=== PATIENT | male | born 1970 | race Caucasian/White ===

== ENCOUNTER 2017-04-15 19:59 | Inpatient (IN) | payer SELFPAY ==
[~2017-04-15] VITALS: Ht 180.3 cm; Wt 96.9 kg
[2017-04-15] VITALS (8 sets, daily range): BP systolic 117–168; BP diastolic 74–101
[~2017-04-15 19:59] MED LIST: NOHOMEMEDS
[2017-04-15 20:17] LABS: BASOPHIL COUNT 0.1 K/uL (0-0.1); EOSINOPHIL (%) 0.2 % (0-5); HEMATOCRIT 45.4 % (38.0-50.0); IMMATURE GRANULOCYTE (%) 0.7 % (0.0-0.7); IMMATURE GRANULOCYTE COUNT 0.1 K/uL; INSTRUMENT ABS NEUTROPHIL CT 10.8 K/uL; LYMPHOCYTE COUNT 1.5 K/uL (1.0-2.8); MCH 32.2 PG (29.0-34.0); MCHC 34.4 G/DL (30.0-36.0); MCV 93.8 FL (86-99); MEAN PLAT.VOLUME 9.5 uM^3 (9.0-12.4); MONOCYTE (%) 3.6 % (3-12); MONOCYTE COUNT 0.5 K/uL (0-0.8); NEUTROPHIL (%) 83.4 % (45-76); NEUTROPHIL COUNT 10.8 K/uL (1.8-6.4); PLATELET COUNT 309 K/uL (156-360); RBC DIS.WIDTH-CV 12.1 % (11.8-14.6); RBC DIS.WIDTH-SD 41.7 % (39-53); RED BLOOD COUNT 4.84 M/uL (4.00-5.50); WHITE BLOOD COUNT 12.9 K/uL (4.1-10.2)
[2017-04-15 20:24] LABS: PROTHROMBIN TIME 10.4 SEC (10.2-12.9)
[2017-04-15 20:26] LABS: PTT 28.8 SEC (25-37)
[2017-04-15 20:29] LABS: AMYLASE 20 IU/L (1-118); CHLORIDE 101 mEq/L (99-109); POTASSIUM 3.4 mEq/L (3.7-5.4); SODIUM 139 mEq/L (136-147)
[2017-04-15 20:31] LABS: GLUCOSE 195 mg/dL (70-99)
[2017-04-15 20:32] LABS: ANION GAP 15 MEQ/L (2-14)
[2017-04-15 20:34] LABS: GFR ESTIMATE (CALCULATED) > 59 mL/min/; SERUM ETHYL ALCOHOL 163 mg/dL
[2017-04-15 20:35] LABS: UREA NITROGEN (BUN) 8 mg/dL (9-23)
[2017-04-15 20:37] LABS: LIPASE 34 U/L (1.0-51.0)
[2017-04-15 20:44] LABS: TROP-I INTERPRETATION POSITIVE; TROPONIN-I 2.75 ng/mL (0.0-0.30)
[2017-04-15 23:10] LABS: MAGNESIUM 2.3 mg/dL (1.3-2.7)
[2017-04-16] VITALS (15 sets, daily range): BP systolic 102–168; BP diastolic 57–99
[2017-04-16 01:29] LABS: METH RESISTANT S AUREUS PCR NEGATIVE (NEGATIVE)
[2017-04-16 01:30] LABS: PROBE CHECK PASS; SPECIMEN PROCESSING CONTROL PASS
[2017-04-16 05:49] LABS: BASOPHIL COUNT 0.1 K/uL (0-0.1); EOSINOPHIL (%) 1.1 % (0-5); EOSINOPHIL COUNT 0.1 K/uL (0-0.3); HEMATOCRIT 38.6 % (38.0-50.0); IMMATURE GRANULOCYTE (%) 0.5 % (0.0-0.7); IMMATURE GRANULOCYTE COUNT 0.1 K/uL; INSTRUMENT ABS NEUTROPHIL CT 7.5 K/uL; LYMPHOCYTE COUNT 2.5 K/uL (1.0-2.8); MCV 94.4 FL (86-99); MONOCYTE (%) 7.3 % (3-12); MONOCYTE COUNT 0.8 K/uL (0-0.8); NEUTROPHIL COUNT 7.5 K/uL (1.8-6.4); PLATELET COUNT 306 K/uL (156-360); RBC DIS.WIDTH-CV 12.2 % (11.8-14.6); RBC DIS.WIDTH-SD 42.5 % (39-53); RED BLOOD COUNT 4.09 M/uL (4.00-5.50)
[2017-04-16 06:12] LABS: ANION GAP 11 MEQ/L (2-14); CHLORIDE 105 MEQ/L (99-109); GFR ESTIMATE (CALCULATED) > 59 mL/min/; HDL CHOLESTEROL 32 MG/DL (Desirable>=40); NON-HDL CHOLESTEROL 218 mg/dL (Desirable<160); SAMPLE HEMOLYSIS CHECK 1; SAMPLE ICTERIC CHECK 0; SAMPLE LIPEMIA CHECK 2; SODIUM 139 MEQ/L (136-147); TOTAL CHOLESTEROL 250 mg/dL (Desirable<200); TRIGLYCERIDES 956 MG/DL (Normal: <150); UREA NITROGEN (BUN) 9 mg/dL (9-23)
[2017-04-16 06:13] LABS: GLUCOSE 111 mg/dL (70-99)
[2017-04-16 06:18] LABS: TROP-I INTERPRETATION POSITIVE
[2017-04-16 06:27] LABS: CREATINE KINASE 115 IU/L (1-294); TOTAL CK 115 IU/L (1-294)
[2017-04-16 06:57] LABS: CK-MB 6.1 ng/mL (0.0-4.9)
[2017-04-16] MEDS ORDERED: ADDERALL15 MG PO (17:13)
[2017-04-16] MEDS ORDERED: ALEVE220 MG PO (17:13)
[2017-04-16] MEDS ORDERED: BRILINTA90 MG PO (17:27)
[2017-04-16] MEDS ORDERED: ATORVASTATIN CA80 MG PO (17:27)
[2017-04-16] MEDS ORDERED: NITROSTAT0.4 MG SL (17:27)
[2017-04-16] MEDS ORDERED: LOPRESSOR25 MG PO (17:27)
[2017-04-16] MEDS ORDERED: ASPIR-LOW81 MG PO (17:27)
[2017-04-17 08:05] LABS: Estimated Average Glucose 143 mg/dL (70-123); HEMOGLOBIN A1c (GLYCOHEMOGLOB) 6.6 % HGB (Below 5.7)
== END 2017-04-16 18:25 | disposition home or self-care (01) | DRG 247 ==
LOC: EME 19:59 → ENRESERV 20:17 → CATH 20:48 → EME 20:48 → 4WEST 21:38
PROVIDERS: Emergency Medicine; Internal Medicine Cardiovascular Disease; Internal Medicine Critical Care Medicine
DX: I21.19 ST elevation (STEMI) myocardial infarction involving other coronary artery of inferior wall (principal); I25.10 Atherosclerotic heart disease of native coronary artery without angina pectoris; F10.10 Alcohol abuse, uncomplicated; E78.00 Pure hypercholesterolemia, unspecified; Y90.6 Blood alcohol level of 120-199 mg/100 ml; F17.210 Nicotine dependence, cigarettes, uncomplicated; F90.9 Attention-deficit hyperactivity disorder, unspecified type; Z91.19 Patient's noncompliance with other medical treatment and regimen; Z95.5 Presence of coronary angioplasty implant and graft; Z79.82 Long term (current) use of aspirin; Z82.49 Family history of ischemic heart disease and other diseases of the circulatory system; Z83.79 Family history of other diseases of the digestive system; Z81.1 Family history of alcohol abuse and dependence
CPT/HCPCS: 80048; 80061; 81003; 82150; 82550; 82553; 83036; 83690; 83735; 84484; 85025; 85347; 85610; 85730; 86850; 86900; 86901; 87641; 93005; 99281; 99285; C1725; C1769; C1874; C1887; G0480; J0461; J1644; J2060; J2250; J2405; J3010; J3411; J7030

== ENCOUNTER 2017-04-23 22:16 | Emergency (ER) | payer SELFPAY ==
[~2017-04-23] VITALS: Ht 177.8 cm; Wt 96.2 kg
[~2017-04-23 22:16] MED LIST changes: +ADDERALL15 MG PO; +ALEVE220 MG PO; +ASPIR-LOW81 MG PO; +ATORVASTATIN CA80 MG PO; +BRILINTA90 MG PO; +LOPRESSOR25 MG PO; +NITROSTAT0.4 MG SL
[2017-04-23 23:02] VITALS: BP 135/98
== END 2017-04-23 23:02 | disposition home or self-care (01) ==
LOC: EME 22:16
DX: F10.10 Alcohol abuse, uncomplicated (principal); S00.81XA Abrasion of other part of head, initial encounter; S50.312A Abrasion of left elbow, initial encounter; Y35.813A Legal intervention involving manhandling, suspect injured, initial encounter; Y93.72 Activity, wrestling; F41.9 Anxiety disorder, unspecified; F17.200 Nicotine dependence, unspecified, uncomplicated; I25.2 Old myocardial infarction; Z95.5 Presence of coronary angioplasty implant and graft
CPT/HCPCS: 99281; 99283

== ENCOUNTER 2017-05-23 22:51 | Inpatient (IN) | payer SELFPAY ==
[~2017-05-23] VITALS: Ht 177.8 cm; Wt 100.0 kg
[2017-05-23 23:46] LABS: ADD MEDTOX COMMENT Y; AMPHETAMINE NEGATIVE (500 ng/mL); BARBITURATES PRESUMPTIVE POSITIVE (200 ng/mL); BENZODIAZEPINES NEGATIVE (150 ng/mL); COCAINE NEGATIVE (150 ng/mL); INTERNAL CONTROLS VALID? YES; METHADONE NEGATIVE (200 ng/mL); METHAMPHETAMINE NEGATIVE (500 ng/mL); OPIATES (MORPHINE) NEGATIVE (100 ng/mL); OXYCODONE NEGATIVE (100 ng/mL); PHENCYCLIDINE NEGATIVE (25 ng/mL); PROPOXYPHENE NEGATIVE (300 ng/mL); THC CANNABINOIDS NEGATIVE (50 ng/mL); TRICYCLIC ANTIDEPRESSANTS NEGATIVE (300 ng/mL)
[2017-05-24 00:03] LABS: HEMATOCRIT 38.1 % (38.0-50.0); MCH 33.2 PG (29.0-34.0); MCHC 35.4 G/DL (30.0-36.0); MCV 93.6 FL (86-99); MEAN PLAT.VOLUME 9.2 uM^3 (9.0-12.4); PLATELET COUNT 284 K/uL (156-360); RBC DIS.WIDTH-CV 13.1 % (11.8-14.6); RBC DIS.WIDTH-SD 44.6 % (39-53); RED BLOOD COUNT 4.07 M/uL (4.00-5.50); WHITE BLOOD COUNT 6.9 K/uL (4.1-10.2)
[2017-05-24 00:15] LABS: CHLORIDE 107 mEq/L (99-109); SODIUM 143 mEq/L (136-147)
[2017-05-24 00:17] LABS: GLUCOSE 122 mg/dL (70-99)
[2017-05-24 00:18] LABS: ANION GAP 12 MEQ/L (2-14)
[2017-05-24 00:20] LABS: SERUM ETHYL ALCOHOL 227 mg/dL
[2017-05-24 00:21] LABS: GFR ESTIMATE (CALCULATED) > 59 mL/min/
[2017-05-24 00:23] LABS: UREA NITROGEN (BUN) 13 mg/dL (9-23)
[2017-05-24 00:24] LABS: SALICYLATE < 5.0 MG/DL (15-30)
[2017-05-24 02:21] LABS: BARBITUATES QUANT VALUE 0 NG/ML
[2017-05-24 18:55] VITALS: BP 175/97
[2017-05-25 07:56] VITALS: BP 159/77
== END 2017-05-25 11:42 | disposition home or self-care (01) | DRG 882 ==
LOC: EME 22:51 → 1WEST 05-24 13:44 → EDOF 05-24 13:44 → ENRESERV 05-24 17:22 → 1WEST 05-24 18:52
PROVIDERS: Emergency Medicine
DX: F43.20 Adjustment disorder, unspecified (principal); Z76.5 Malingerer [conscious simulation]; F10.129 Alcohol abuse with intoxication, unspecified; Y90.7 Blood alcohol level of 200-239 mg/100 ml; F41.9 Anxiety disorder, unspecified; I25.2 Old myocardial infarction; F17.200 Nicotine dependence, unspecified, uncomplicated; R45.851 Suicidal ideations
CPT/HCPCS: 71010; 80048; 84999; 85027; 90686; 90839; 93005; 99281; 99284; G0480; J7030

== ENCOUNTER 2017-06-03 00:38 | Observation (INO) | payer OTHER ==
[~2017-06-03] VITALS: Ht 177.8 cm; Wt 95.9 kg
[2017-06-03 00:59] VITALS: BP 105/84
[2017-06-03 01:04] LABS: HEMATOCRIT 40.3 % (38.0-50.0); MCH 33.4 PG (29.0-34.0); MCHC 35.7 G/DL (30.0-36.0); MCV 93.5 FL (86-99); MEAN PLAT.VOLUME 9.1 uM^3 (9.0-12.4); PLATELET COUNT 342 K/uL (156-360); RBC DIS.WIDTH-CV 12.6 % (11.8-14.6); RBC DIS.WIDTH-SD 43.2 % (39-53); RED BLOOD COUNT 4.31 M/uL (4.00-5.50); WHITE BLOOD COUNT 9.9 K/uL (4.1-10.2)
[2017-06-03 01:12] LABS: CHLORIDE 104 mEq/L (99-109); POTASSIUM 3.7 mEq/L (3.7-5.4); SODIUM 141 mEq/L (136-147)
[2017-06-03 01:14] LABS: GLUCOSE 155 mg/dL (70-99)
[2017-06-03 01:15] LABS: ANION GAP 14 MEQ/L (2-14)
[2017-06-03 01:18] LABS: GFR ESTIMATE (CALCULATED) > 59 mL/min/
[2017-06-03 01:19] LABS: UREA NITROGEN (BUN) 11 mg/dL (9-23)
[2017-06-03 01:25] LABS: TROP-I INTERPRETATION NEGATIVE; TROPONIN-I < 0.01 ng/mL (0.0-0.30)
[2017-06-03 01:30] LABS: SERUM ETHYL ALCOHOL 208 mg/dL
[2017-06-03 03:54] LABS: MAGNESIUM 2.2 mg/dL (1.3-2.7)
== END 2017-06-03 04:27 | disposition left against medical advice (07) ==
LOC: EME 00:38 → EDOF 03:04 → ENRESERV 03:05 → CANRESERV 03:18 → EDOF 04:27
DX: R07.9 Chest pain, unspecified (principal); I25.10 Atherosclerotic heart disease of native coronary artery without angina pectoris; Z95.5 Presence of coronary angioplasty implant and graft; I10 Essential (primary) hypertension; F10.10 Alcohol abuse, uncomplicated; Y90.7 Blood alcohol level of 200-239 mg/100 ml; F17.210 Nicotine dependence, cigarettes, uncomplicated; Z79.02 Long term (current) use of antithrombotics/antiplatelets; Z91.14 Patient's other noncompliance with medication regimen
CPT/HCPCS: 71020; 80048; 80053; 81003; 83735; 84484; 85027; 93005; 99281; 99285; G0378; G0480

== ENCOUNTER 2017-09-15 01:46 | Emergency (ER) | payer OTHER ==
[~2017-09-15] VITALS: Ht 177.8 cm; Wt 95.4 kg
[2017-09-15 02:05] VITALS: BP 125/98
== END 2017-09-15 02:06 ==
LOC: EME 01:46 → EDBD 01:46 → EME 02:06
DX: F10.129 Alcohol abuse with intoxication, unspecified (principal); I10 Essential (primary) hypertension; F17.200 Nicotine dependence, unspecified, uncomplicated
CPT/HCPCS: 99281; 99283

== ENCOUNTER 2017-09-15 04:28 | Emergency (ER) | payer OTHER ==
[~2017-09-15] VITALS: Ht 177.8 cm; Wt 95.4 kg
[2017-09-15 05:15] VITALS: BP 138/91
== END 2017-09-15 05:23 ==
LOC: EME → EDBD 04:28 → EME 05:23
DX: S50.12XA Contusion of left forearm, initial encounter (principal); W21.11XA Struck by baseball bat, initial encounter; F17.200 Nicotine dependence, unspecified, uncomplicated
CPT/HCPCS: 73090; 99281; 99283

== ENCOUNTER 2018-02-16 00:05 | Emergency (ER) | payer OTHER ==
[~2018-02-16] VITALS: Ht 177.8 cm; Wt 95.9 kg
[2018-02-16 00:07] VITALS: BP 136/80
[2018-02-16] MEDS ORDERED: MEDROL DOSEPAK4 MG PO (00:55)
[2018-02-16] MEDS ORDERED: ULTRAM50 MG PO (00:56)
== END 2018-02-16 00:59 | disposition home or self-care (01) ==
LOC: EME 00:05
DX: M71.9 Bursopathy, unspecified (principal); F17.200 Nicotine dependence, unspecified, uncomplicated
CPT/HCPCS: 99281; 99283